=== PATIENT | male | born 1990 | race Two or more races ===

== ENCOUNTER 2021-03-12 21:06 | Emergency (ER) | payer MEDICAID ==
[~2021-03-12] VITALS: Ht 167.6 cm; Wt 85.6 kg
[2021-03-12] MEDS ORDERED: IBUPROFEN 800 MG TABLET PO ONE (22:30)
[2021-03-12] MEDS ORDERED: DEXAMETHASONE 4 MG TABLET PO ONE (22:30)
[2021-03-12] MEDS ORDERED: IBUPROFEN 800 MG TABLET ONE (22:33)
[2021-03-12] MEDS ORDERED: DEXAMETHASONE 4 MG TABLET ONE (22:33)
[2021-03-12 23:48] VITALS: BP 111/63
== END 2021-03-12 23:49 | disposition home or self-care (01) ==
LOC: ED 21:36
DX: J02.0 Streptococcal pharyngitis (principal); R51.9 Headache, unspecified; R06.02 Shortness of breath; J45.909 Unspecified asthma, uncomplicated; F17.200 Nicotine dependence, unspecified, uncomplicated
CPT/HCPCS: 71045; 99283